=== PATIENT | female | born 1965 | race Caucasian/White ===

== ENCOUNTER 2017-02-19 10:48 | Emergency (ER) | payer BC, SELFPAY ==
[2017-02-19 11:26] LABS: #Eosinphils 0.1 thou/uL (0.0-0.7); #Monocytes 0.4 thou/uL (0.11-0.59); #Neutrophils 6.8 thou/uL (1.40-6.50); %Basophils 0.2 % (0.0-1.0); %Eosinophils 0.9 % (0.0-10.0); %Lymphocytes 12.4 % (21.0-51.0); %Monocytes 4.4 % (0.0-10.0); %Neutrophils 82.2 % (42.0-75.0); Hemoglobin 12.8 g/dL (12.0-16.0); Mean Corpuscular HGB CONC 33.1 g/dL (32.0-36.0); Mean Corpuscular Hemoglobin 28.6 pg (27.0-31.0); Mean Corpuscular Volume 86.4 fl (81.0-99.0); Mean Platelet Volume 6.5 fL (7.4-10.4); Platelet Count 230 thou/uL (130-400); RBC Distribution Width 14.2 % (11.5-14.5); Red Blood Cell (RBC) Count 4.47 mill/uL (4.20-5.40); White Blood Cell (WBC) Count 8.3 thou/uL (4.8-10.8)
[2017-02-19 11:39] LABS: ALT (SGPT) 21 U/L (8-55); AST (SGOT) 25 U/L (5-34); Albumin 3.9 g/dL (3.5-5.0); Alkaline Phosphatase 100 U/L (40-150); Anion Gap 12 mmol/L (10-20); BUN (Urea Nitrogen) 19 mg/dL (9.8-20.1); Bilirubin, Total 0.6 mg/dL (0.2-1.2); Calc. Creatinine Clearance 0 mL/min (70-130); Calcium 9.6 mg/dL (7.8-10.44); Carbon Dioxide 27 mmol/L (22-29); Chloride 101 mmol/L (98-107); Estimated GFR-MDRD 80; Globulin 2.8 g/dL (2.4-3.5); Glucose 107 mg/dL (70-105); Lipase 24 U/L (8-78); Potassium 4.1 mmol/L (3.5-5.1); Protein, Total 6.7 g/dL (6.0-8.3); Sodium 136 mmol/L (136-145)
--- NOTE | 2017-02-19 11:44 | CT ---
HEAD CT WITHOUT CONTRAST: 02/19/2017 HISTORY: Fall. Trauma. Pain. A 51-year-old female, status post bull attack. COMPARISON: 05/03/2015 TECHNIQUE: Serial axial CT imaging is obtained at 5 mm intervals, from the vertex through the skull base, withou t contrast. FINDINGS: The imaged paranasal sinuses/mastoid air cells demonstrate mild mucosal thickening involving the alve olar recess of the bilateral maxillary sinuses. There is a focal area of right frontal scalp swelling. There is no intracranial hemorrhage, midline shift, mass effect, or ventricular enlargement. IMPRESSION: Focal area of anterior right frontal scalp swelling with no displaced calvarial fracture or intracran ial hemorrhage. POS: [facility]
--- NOTE | 2017-02-19 11:52 | CT ---
CT CERVICAL SPINE NONCONTRAST: HISTORY: Injured by bull. Neck pain. FINDINGS: Vertebral body heights and alignment are maintained. Cervicothoracic junction is intact. There is s cattered osteophytosis. Disk space narrowing and endplate changes are most pronounced at the C6-C7 l evel. No acute fracture or dislocation is evident. IMPRESSION: Cervical spondylosis. No acute osseous abnormalities are demonstrated. POS: [facility]
[2017-02-19] MEDS ORDERED: Ketorolac Tromethamine 30 MG/ML VIAL ONE (12:35)
--- NOTE | 2017-02-19 12:51 | CT ---
CHEST AND ABDOMEN AND PELVIS CT SCAN WITH IV CONTRAST THORACIC SPINE CT SCAN WITH IV CONTRAST LIMITED LUMBAR SPINE CT SCAN WITH IV CONTRAST LIMITED: Date: 02/19/17 HISTORY: Injury following trauma after being run over by a bull. FINDINGS: CHEST, ABDOMEN, AND PELVIS CT SCAN WITH IV CONTRAST: There are some minimal posterior pleural based parenchymal changes, probably positional. No pneumotho rax or pleural effusion. No mediastinal hematoma. The aorta appears unremarkable. No pleural effusion or pericardial effusion. In the abdomen and pelvis, there are noted to be some scattered areas of subcutaneous fat stranding, particularly over the right mid lateral abdomen. At the level of this subcutaneous fat stranding, jus t below the level of the umbilicus, there is a 4-5 cm area of mesenteric fat stranding at the root of the mesentery. There is no evidence for free intraperitoneal fluid or free intraperitoneal air or ex traluminal gas. The pelvis shows no abnormal pelvic fluid collection. No retroperitoneal hematoma. IMPRESSION: Some abnormal mesenteric fat stranding in the inferior central mesentery below the level of the umbil icus at the same approximate level as multiple subcutaneous areas of fat stranding in the right side of the abdomen. I feel that both of these are probably related to fat stranding from contusion relate d to the patient's traumatic injury, but no other significant abnormal finding is noted. THORACIC SPINE CT SCAN WITH IV CONTRAST LIMITED: IMPRESSION: No fracture, dislocation, or other acute process. LUMBAR SPINE CT SCAN WITH IV CONTRAST LIMITED: IMPRESSION: No fracture, dislocation, or other acute process. Findings discussed with Dr. Gay at approximately 1220 hours. CODE CR. POS: [facility]
== END 2017-02-19 12:47 | disposition home or self-care (01) ==
LOC: ERS 10:48
DX: S30.1XXA Contusion of abdominal wall, initial encounter (principal); S00.412A Abrasion of left ear, initial encounter; K21.9 Gastro-esophageal reflux disease without esophagitis; I10 Essential (primary) hypertension; E03.9 Hypothyroidism, unspecified; M06.9 Rheumatoid arthritis, unspecified; Z79.899 Other long term (current) drug therapy; W55.22XA Struck by cow, initial encounter
CPT/HCPCS: 70450; 71260; 72125; 74177; 80053; 83690; 85025; 94760; 96374; G0390; J1885

== ENCOUNTER 2017-02-27 14:21 | Emergency (ER) | payer SELFPAY ==
--- NOTE | 2017-02-27 15:45 | CT ---
CT BRAIN WITHOUT CONTRAST: History: Headache. Comparison: CT brain 02-19-17 FINDINGS: No acute territory infarct or hemorrhage. No midline shift or mass effect. Ventricular size and extra axial CSF spaces are normal. Calvarium is intact. Paranasal sinuses and mastoids are clear. IMPRESSION: No acute intracranial abnormality. POS: [facility]
[2017-02-27] MEDS ORDERED: Ondansetron ODT 8 MG TAB ONE (17:37)
--- NOTE | 2017-02-27 18:41 | RAD ---
PA AND LATERAL CHEST X-RAY 02/27/17 HISTORY: Dyspnea. Patient continues to have headache with nausea and vomiting after a head injury. COMPARISON: 12/11/14. FINDINGS: The cardiac silhouette and pulmonary vasculature are within normal limits. The lungs remain clear. Th ere has been no interval change from prior study. IMPRESSION: No acute cardiopulmonary process. POS: [facility]
== END 2017-02-27 17:45 | disposition home or self-care (01) ==
LOC: ERS 14:21
DX: F07.81 Postconcussional syndrome (principal); J20.9 Acute bronchitis, unspecified; K21.9 Gastro-esophageal reflux disease without esophagitis; I10 Essential (primary) hypertension; E03.9 Hypothyroidism, unspecified; Z79.899 Other long term (current) drug therapy
CPT/HCPCS: 70450; 71046; 94640; J7620

== ENCOUNTER 2018-08-07 08:34 | Outpatient (CLI) | payer OTHER ==
--- NOTE | 2018-08-07 09:30 | MMO ---
Bilateral MAMMO Bilat Screen [facility]. CLINICAL HISTORY: Patient is 52 years old and is seen for screening. The patient has the following family history of breast cancer: second cousin. The patient has no personal history of cancer. VIEWS: The views performed were: bilateral craniocaudal with tomosynthesis and bilateral mediolateral oblique with tomosynthesis. FILMS COMPARED: The present examination has been compared to prior imaging studies performed at [facility] on 12/15/2012, 12/21/2013, 12/27/2014 and 12/29/2015. MAMMOGRAM FINDINGS: The breasts are almost entirely fat. There are no suspicious masses, suspicious calcifications, or new areas of architectural distortion. IMPRESSION: THERE IS NO MAMMOGRAPHIC EVIDENCE OF MALIGNANCY. A ROUTINE FOLLOW-UP MAMMOGRAM IN 1 YEAR IS RECOMMENDED. THE RESULTS OF THIS EXAM WERE SENT TO THE PATIENT. ACR BI-RADS Category 1 - Negative MAMMOGRAPHY NOTE: 1. A negative mammogram report should not delay a biopsy if a dominant of clinically suspicious mass is present. 2. Approximately 10% to 15% of breast cancers are not detected by mammography. 3. Adenosis and dense breasts may obscure an underlying neoplasm.
== END 2018-08-07 08:35 | disposition home or self-care (01) ==
LOC: BICMAMMO 08:34
PROVIDERS: ATTEND Family Medicine
DX: Z12.31 Encounter for screening mammogram for malignant neoplasm of breast (principal); Z80.3 Family history of malignant neoplasm of breast
CPT/HCPCS: 77063; 77067

== ENCOUNTER 2019-04-08 08:07 | Outpatient (CLI) | payer MEDICARE ==
--- NOTE | 2019-04-08 09:44 | MRI ---
EXAM: MRI right ankle with and without IV contrast PROVIDED CLINICAL HISTORY: Pain COMPARISON: None FINDINGS: The anterior extensor, medial flexor, peroneal and Achilles tendons demonstrate an intact MR appearan ce. There is greater than physiologic fluid about the posterior tibialis tendon. There is partial thickness nonattenuating tearing noted involving the anterior superficial and spring components of the deltoid ligament. The lateral ankle ligaments appear intact. No regional joint effusion is evident. 5 mm of low-grade osteochondral lesion medial talar dome. Nancy cular cartilage appears preserved. Alignment appears anatomic. Joint spaces appear preserved. Preservation of the normal fat signal intensity within the tarsal sinus. Plantar calcaneal enthesophy te formation, with normal appearance to the plantar aponeurosis. No evidence for abnormal contrast enhancement. IMPRESSION: 1. Posterior tibialis tenosynovitis. 2. Partial thickness not attenuating tearing involving anterior superficial and spring component delt oid ligament. 3. 5 mm low-grade osteochondral lesion medial talar dome.
[2019-04-08] MEDS ORDERED: Magnevist 469MG/ML 20 ML VIAL ONE (13:50)
== END 2019-04-08 08:08 | disposition home or self-care (01) ==
LOC: BICMRI 08:07
PROVIDERS: ATTEND Podiatrist
DX: M76.821 Posterior tibial tendinitis, right leg (principal); M19.071 Primary osteoarthritis, right ankle and foot; M79.671 Pain in right foot; M65.861 Other synovitis and tenosynovitis, right lower leg; M89.9 Disorder of bone, unspecified
CPT/HCPCS: A9579

== ENCOUNTER 2019-08-19 08:55 | Outpatient (CLI) | payer MEDICARE ==
--- NOTE | 2019-08-19 09:52 | MMO ---
Bilateral MAMMO Bilat Screen [facility]. CLINICAL HISTORY: Patient is 53 years old and is seen for screening. The patient has the following family history of breast cancer: second cousin. The patient has no personal history of cancer. VIEWS: The views performed were: bilateral craniocaudal with tomosynthesis and bilateral mediolateral oblique with tomosynthesis. FILMS COMPARED: The present examination has been compared to prior imaging studies performed at [facility] on 12/21/2013, 12/27/2014, 12/29/2015 and 08/07/2018. This study has been interpreted with the assistance of computer-aided detection. MAMMOGRAM FINDINGS: There are stable benign appearing calcifications seen in both breasts. There are no suspicious masses, suspicious calcifications, or new areas of architectural distortion. IMPRESSION: THERE IS NO MAMMOGRAPHIC EVIDENCE OF MALIGNANCY. A ROUTINE FOLLOW-UP MAMMOGRAM IN 1 YEAR IS RECOMMENDED. THE RESULTS OF THIS EXAM WERE SENT TO THE PATIENT. ACR BI-RADS Category 2 - Benign finding MAMMOGRAPHY NOTE: 1. A negative mammogram report should not delay a biopsy if a dominant of clinically suspicious mass is present. 2. Approximately 10% to 15% of breast cancers are not detected by mammography. 3. Adenosis and dense breasts may obscure an underlying neoplasm. Reported by: BERNABE FOURNIER MD Electonically Signed: [id number]
== END 2019-08-19 08:56 | disposition home or self-care (01) ==
LOC: BICMAMMO 08:55
PROVIDERS: ATTEND Family Medicine
DX: Z12.31 Encounter for screening mammogram for malignant neoplasm of breast (principal); Z80.3 Family history of malignant neoplasm of breast
CPT/HCPCS: 77063; 77067

== ENCOUNTER 2024-01-15 13:27 | Outpatient (CLI) | payer OTHER, MEDICAID | END 2024-01-15 13:28 | disposition home or self-care (01) | LOC: BICRAD 13:27 | PROVIDERS: ATTEND Family Medicine | DX: R07.2 Precordial pain (principal) | CPT/HCPCS: 71046 ==